=== PATIENT | male | born 1960 | race Caucasian/White ===

== ENCOUNTER 2021-10-16 10:12 | Outpatient (REF) | payer BC, SELFPAY ==
--- NOTE | 2021-10-16 08:30 | SKI_PTH ---
PATIENT: Nadeem Junior LOC: [facility] U#:[id number] AGE/SX: 61/M ROOM: RE10/16/[address]: Joo Correa DO : 1960 BED: DIS: 10/16/2021 SPEC #: [id number] RECD: 10/16/21 14:22 STATUS: JEFFERY REQ #: [id number] AL: 10/16/21 08:[address]: Joo Correa DEPT: Surgical Specimen RECD BY: Lore Rivera ENTERED: 10/21/21 15:42 SP TYPE: SKI OT DR: ISMAEL MILLER, EQUAL OPPORTUNITY REPRESENTATIVE Tissues: 1 - SKIN BIOPSY(SHAVE/PUNCH) Procedures: SKIN LEVEL 4 Comments: [id number]
== END 2021-10-16 10:13 | disposition home or self-care (01) ==
LOC: LBN 10:12
PROVIDERS: PCP Nurse Practitioner Family; Visit Provider Otolaryngology Otolaryngology/Facial Plastic Surgery
DX: C44.619 Basal cell carcinoma of skin of left upper limb, including shoulder (principal)
CPT/HCPCS: 88305

== ENCOUNTER 2021-10-30 11:29 | Outpatient (REF) | payer BC, SELFPAY ==
--- NOTE | 2021-10-30 10:40 | SKI_PTH ---
PATIENT: Nadeem Junior LOC: [facility] U#:[id number] AGE/SX: 61/M ROOM: RE10/30/[address]: CORNELIUS [place] : 1960 BED: DIS: 10/30/2021 SPEC #: [id number] RECD: 10/30/21 15:52 STATUS: JEFFERY REOrtiz #: [id number] AL: 10/30/21 10:[address]: Kamari Prieto DEPT: Surgical Specimen RECD BY: Sahra Lainez ENTERED: 10/30/21 15:52 SP TYPE: HANNA BAEZ DR: ISMAEL MILLER, TIRE BUSTER Tissues: 1 - SKIN BIOPSY(SHAVE/PUNCH) Procedures: SKIN LEVEL 4 Comments: [id number]
== END 2021-10-30 11:30 | disposition home or self-care (01) ==
LOC: LBN 11:29
PROVIDERS: PCP Nurse Practitioner Family; Visit Provider Physician Assistant
DX: L73.8 Other specified follicular disorders
CPT/HCPCS: 88305

== ENCOUNTER 2022-09-17 16:33 | Outpatient (REF) | payer MEDICAID, SELFPAY ==
--- NOTE | 2022-09-17 08:45 | SKI_PTH ---
PATIENT: Nadeem Junior LOC: [facility] U#:[id number] AGE/SX: 62/M ROOM: RE09/17/[address]: Joo Correa DO : 1960 BED: DIS: 09/17/2022 SPEC #: [id number] RECD: 09/20/22 11:33 STATUS: JEFFERY REQ #: [id number] AL: 09/17/22 08:[address]: Joo Correa DEPT: Surgical Specimen RECD BY: Sahra Lainez ENTERED: 09/20/22 11:34 SP TYPE: HANNA BAEZ DR: ISMAEL MILLER, PURCHASING COORDINATOR Tissues: 1 - SKIN BIOPSY(SHAVE/PUNCH) 2 - SKIN BIOPSY(SHAVE/PUNCH) Procedures: IMMUNOPEROXIDASE STAIN SKIN LEVEL 4 Comments: [id number]
== END 2022-09-17 16:34 | disposition home or self-care (01) ==
LOC: LBN 16:33
PROVIDERS: PCP Nurse Practitioner Family; Visit Provider Otolaryngology Otolaryngology/Facial Plastic Surgery
DX: D49.2 Neoplasm of unspecified behavior of bone, soft tissue, and skin (principal)
CPT/HCPCS: 88305; 88361